=== PATIENT | male | born 2000 | race Caucasian/White ===

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

== ENCOUNTER 2021-02-07 03:29 | Emergency (ER) | payer SELFPAY ==
[2021-02-07] MEDS ORDERED: Ketorolac 15 MG/ML SDV IVPUSH ONE (03:41)
[2021-02-07 03:57] LABS: BLOOD UREA NITROGEN,BUN 15 mg/dL (7.0-18.0); CARBON DIOXIDE,CO2 30.8 mmol/L (21.0-32.0); CHLORIDE,CL 104 mmol/L (98-107); GLUCOSE RANDOM 96 mg/dL (74-106); POTASSIUM,K 3.3 mmol/L (3.5-5.1); SODIUM,NA 144 mmol/L (136-148)
--- NOTE | 2021-02-07 04:52 | CR ---
INDICATION: Left-sided chest pain TECHNIQUE: AP view of the chest COMPARISON: None FINDINGS: The lungs are clear. There is no sizable pleural effusion or pneumothorax. The cardiomediastinal silhouette is normal. The visualized osseous structures are unremarkable. IMPRESSION: No acute intrathoracic process. Dictated by Charlotte Sharma MD @ Feb 07 2021 4:51AM Signed by Dr. Charlotte Sharma @ Feb 07 2021 4:52AM
[2021-02-07] MEDS ORDERED: Azithromycin 250 MG Tab PO STA (05:03)
[2021-02-07 05:07] LABS: CORONAVIRUS COVID-19 NAA NEGATIVE (NEGATIVE); INFLUENZA A NAA NEGATIVE (NEGATIVE); INFLUENZA B NAA NEGATIVE (NEGATIVE)
[2021-02-07 05:19] VITALS: BP 112/70; PULSE 70
--- NOTE | 2021-02-07 05:22 | EDM.PDOC ---
ED HPI GENERAL MEDICAL PROBLEM - General Chief Complaint: Chest Pain Stated Complaint: CHEST PAIN Time Seen by Provider: 02/07/21 03:35 - History of Present Illness INITIAL COMMENTS - FREE TEXT/NARRATIVE: CHIEF COMPLAINT(S): Chest pain HISTORY OF PRESENT ILLNESS: This is a 20-year-old man with a past medical history of bicuspid aortic valve who comes to the emergency department with a chief complaint of chest pain. The patient states that for the past 3 weeks he is experiencing a dry cough that he did have a Covid test last week which was negative. He states that starting this evening he started to have chest pain on the left side of his chest which she describes as sharp and pressure like a needle located on the lateral left side of his chest wall without any radiation. He rates his pain as 8 out of 10. He states the pain is exacerbated by coughing. He denies any relieving symptoms. He denies any diaphoresis but did have 2 episodes of vomiting. He denies any nausea. He states that he was at work when this happened. 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 He denies any recent travel, recent surgery, prior history of DVT or PE. He denies any family history of early onset CAD or sudden onset at young age. He denies any fevers or chills. The patient denies any history of asthma, COPD. REVIEW OF SYSTEMS: Constitutional: Denies fever, chills. Eyes: Denies eye pain Ears, Nose, Mouth, & Throat: Denies earache Cardiovascular: Positive for left-sided chest pain Respiratory: Positive for cough. Denies shortness of breath Gastrointestinal: Denies Nausea, vomiting, diarrhea, hematochezia. Genitourinary: Denies hematuria Skin:Denies a rash MSK: Denies joint pain Neurological: Denies blurred vision Psychiatric: Denies depression PAST MEDICAL HISTORY: As per history of present illness and as reviewed below otherwise noncontributory. SURGICAL HISTORY: As per history of present illness and as reviewed below otherwise noncontributory. SOCIAL HISTORY: As per history of present illness and as reviewed below otherwise noncontributory. FAMILY HISTORY: As per history of present illness and as reviewed below otherwise noncontributory. EXAMINATION OF ORGAN SYSTEMS/BODY AREAS: Constitutional: Blood pressure is 130/93, heart rate 80, respiratory rate 18 with an oxygen saturation 98% on room air. Temperature 36.8 General: Young man who does not appear to be any acute distress who is coughing intermittently. Psychiatric: Appropriate mood and affect. Eyes: No scleral icterus or conjunctival erythema ENMT: Moist mucous membranes. No pharyngeal erythema Cardiovascular: Regular, rate, and rhythm. No gallops, murmurs, or rubs. Bilateral upper extremity pulses symmetric and intact. No peripheral edema. No JVD. Respiratory: Patient is speaking in full sentences. Cough is nonproductive. There is left lower lung crackles on auscultation. Right lung fierro are clear. Gastrointestinal: Soft, non-tender, non-distended. Normoactive bowel sounds Genitourinary: No suprapubic tenderness Musculoskeletal: Normal range of motion. Skin: No lesions or abrasions. Neurological: Alert, GCS 15 MEDICAL DECISION MAKING AND COURSE IN THE ED WITH INTERPRETATION/REVIEW OF LIV GNOSTIC STUDIES: This is a 20-year-old man with a past medical history of bicuspid aortic valve who comes to the emergency department with 3 weeks of cough with left-sided chest wall pain that started this evening which is exacerbated by his cough. At this time differential includes pneumothorax, pneumonia, costochondritis. The patient is low risk for ACS therefore I do not believe a troponin is indicated at this time. EKG was obtained which did not reveal any acute signs of ischemia. Will obtain CBC, BMP, Covid and influenza swabs. We will provide him with Toradol for pain relief. Time: 0334 Twelve-lead EKG interpreted by myself. Normal sinus rhythm at a rate of 77beats per minute. Normal axis. ID interval is 159 ms. QRS duration is [address] segments are normal without elevations or depressions. No T wave inversions no Q waves present. Hypertrophy not noted. No changes demonstrated from prior EKG dated 10/07/2019. Interpretation: Sinus rhythm On review of the patient's chart the patient did have a echocardiogram done in November of this year. Echocardiogram was normal. Laboratory: CBC reveals a mild leukocytosis of 12.79 without any left shift. BMP reveals mild hypokalemia at 3.3 otherwise unremarkable. Covid and influenza are negative. The radiological images were viewed by myself along with reading the report from the radiologist. Chest x-ray does not reveal any acute intrathoracic process. On reevaluation the patient's pain had significantly improved. He states that the pain is still only when he is coughing. I did discuss them at this time that given the crackles on lung exam the mild leukocytosis and the continued cough he does have clinically pneumonia even though its not evident on chest x- ray. I discussed that I would be providing him with azithromycin here and to complete a 4-day course outpatient. I discussed with him that he should use Tylenol and Motrin for pain relief and use Voltaren cream to the affected area. I encourage incentive spirometer use. He is to return for any new or worsening symptoms. He was amenable to discharge at this time and had no further questions DISPOSITION: The patient was discharged home in stable condition. The patient will follow up with primary care physician within 2 to 3 days CONDITION: Fair PROCEDURES: None FINAL IMPRESSION(S)/DIAGNOSES: 1. Acute commune acquired pneumonia 2. Acute left-sided chest pain likely costochondritis Stevan Little M.D. chest Pain Score (Numeric/FACES): 5 - Related Data Allergies Allergy/AdvReac Type Severity Reaction Status Date / Time No Known Allergies Allergy Verified 02/07/21 03:47 Home Meds: Home Meds Azithromycin [Zithromax] 250 mg PO DAILY #4 tablet 02/07/21 [Rx] Past Medical History HEENT History: Reports: Other (See Below) Cardiovascular History: Reports: Other (See Below) Other Cardiovascular History: Congenital Aortic Insufficiency, bicuspid aortic valve,normal cardiac function on exam, no physical limitations, no need for prophylactic antibiotics Respiratory History: Reports: None Other Respiratory History: some on exertion Gastrointestinal History: Reports: None Genitourinary History: Reports: None Musculoskeletal History: Reports: None Neurological History: Reports: Concussion Psychiatric History: Reports: None Endocrine/Metabolic History: Reports: None Hematologic History: Reports: None Immunologic History: Reports: None Oncologic (Cancer) History: Reports: None Dermatologic History: Reports: None - Infectious Disease History Infectious Disease History: Reports: None - Past Surgical History Head Surgeries/Procedures: Reports: None HEENT Surgical History: Reports: Tonsillectomy Cardiovascular Surgical History: Reports: None Respiratory Surgical History: Reports: None GI Surgical History: Reports: None Male Surgical History: Reports: None Endocrine Surgical History: Reports: None Neurological Surgical History: Reports: None Musculoskeletal Surgical History: Reports: None Oncologic Surgical History: Reports: None Dermatological Surgical History: Reports: None Social & Family History - Family History Family Medical History: No Pertinent Family History - Caffeine Use Caffeine Use: Reports: Energy Drinks Other Caffeine Use: avg 1 per day - Recreational Drug Use Recreational Drug Use: No ED ROS GENERAL - Review of Systems Review Of Systems: See Below ED EXAM, GENERAL - Physical Exam Exam: See Below Course - Vital Signs Last Recorded V/S: Last Vital Signs Temp 36.4 C 02/07/21 05:19 Pulse 70 02/07/21 05:19 Resp 18 02/07/21 05:19 BP 112/70 02/07/21 05:19 Pulse Ox 98 02/07/21 05:19 - Orders/Labs/Meds Orders: Active Orders 24 hr Category Date Time Status EKG Documentation Completion [RC] STAT Care 02/07/21 03:36 Active Labs: Laboratory Tests 02/07/21 02/07/21 02/07/21 Range/Units 03:36 03:36 04:25 WBC 12.79 H (4.0-11.0) K/uL RBC 5.56 (4.50-5.90) M/uL Hgb 16.3 (13.0-17.0) g/dL Hct 47.0 (38.0-50.0) % MCV 84.5 (80.0-98.0) fL MCH 29.3 (27.0-32.0) pg MCHC 34.7 (31.0-37.0) g/dL RDW Std Deviation 39.5 (28.0-62.0) fl RDW Coeff of Germán 13 (11.0-15.0) % Plt Count 225 (150-400) K/uL MPV 9.70 (7.40-12.00) fL Neut % (Auto) 62.4 (48.0-80.0) % Lymph % (Auto) 29.6 (16.0-40.0) % Bailey % (Auto) 7.0 (0.0-15.0) % Eos % (Auto) 0.8 (0.0-7.0) % Baso % (Auto) 0.2 (0.0-1.5) % Neut # (Auto) 8.0 H (1.4-5.7) K/uL Lymph # (Auto) 3.8 H (0.6-2.4) K/uL Bailey # (Auto) 0.9 H (0.0-0.8) K/uL Eos # (Auto) 0.1 (0.0-0.7) K/uL Baso # (Auto) 0.0 (0.0-0.1) K/uL Nucleated RBC % 0.0 /100WBC Nucleated RBCs # 0 K/uL Sodium 144 (136-148) mmol/L Potassium 3.3 L (3.5-5.1) mmol/L Chloride 104 (98-107) mmol/L Carbon Dioxide 30.8 (21.0-32.0) mmol/L BUN 15 (7.0-18.0) mg/dL Creatinine 1.0 (0.8-1.3) mg/dL Est Cr Clr Drug Dosing 108.24 mL/min Estimated GFR (MDRD) > 60.0 ml/min Glucose 96 (74-106) mg/dL Calcium 9.3 (8.5-10.1) mg/dL Influenza Type A RNA NEGATIVE (NEGATIVE) Influenza Type B RNA NEGATIVE (NEGATIVE) SARS-CoV-2 RNA (CAIN) NEGATIVE (NEGATIVE) Meds: Medications Discontinued Medications Generic Name Dose Route Start Last Admin Trade Name Freq PRN Reason Stop Dose Admin Azithromycin 500 mg 02/07/21 05:03 02/07/21 05:15 Azithromycin 250 Mg Tab PO 02/07/21 05:04 500 mg ONETIME STA Administration Ketorolac Tromethamine 15 mg 02/07/21 03:41 02/07/21 03:51 Ketorolac 15 Mg/Ml Sdv IVPUSH 02/07/21 03:42 15 mg ONETIME ONE Administration Departure - Departure Time of Disposition: 05:20 Disposition: Home, Self-Care 01 Condition: Fair Clinical Impression: Pneumonia, Costochondral chest pain - Discharge Information *PRESCRIPTION DRUG MONITORING PROGRAM REVIEWED*: No *COPY OF PRESCRIPTION DRUG MONITORING REPORT IN PATIENT CLAUDIO: No Prescriptions: Azithromycin [Zithromax] 250 mg PO DAILY #4 tablet Instructions: Chest Wall Pain, [id number], Community-Acquired Pneumonia, Adult, [id number] Referrals: PCP,None [Primary Care Provider] - Forms: ED Department Discharge Additional Instructions: You were evaluated today on an emergent basis. At this time I do believe your pain is likely secondary to costochondritis which is inflammation of the rib from your coughing. In addition I do believe you have pneumonia. Please complete the antibiotic course. I did send the antibiotics to [facility]. For the rib pain I would like you to use an incentive spirometer throughout the day. In addition you may use Tylenol and Motrin for pain and fever relief. If you have any worsening pain, shortness of breath, or fever please return to the emergency department Please use: Tylenol 500-1000mg every 6 hours (DO NOT TAKE MORE THAN 4000mg in 1 day) Ibuprofen 400mg every 6 hours (Take with food as it can cause ulcers, GI upset) Example schedule: 8:00 AM (Tylenol 500-1000mg) 11:00 AM (Ibuprofen 400mg) 2:00 PM (Tylenol 500-1000mg) 5:00 PM (Ibuprofen 400mg) In addition to Tylenol and Motrin you may use over the counter creams such as Voltaren Cream or Lidocaine Cream (Lidoderm) as needed 4 times a day for symptomatic relief. [facility] [address] [place] [address] [place] [address] The patient is informed of any results of their evaluation and diagnostic workup and all questions are answered. They are given discharge instructions and return precautions. The patient is stable for discharge. The patient states they understand and agree with the plan and that they will return if their symptoms get worse or if they have any new concerns. The following information is given to patients seen in the emergency department who are being discharged to home. This information is to outline your options for follow-up care. We provide all patients seen in our emergency department with a follow-up referral. The need for follow-up, as well as the timing and circumstances, are variable depending upon the specifics of your emergency department visit. If you don't have a primary care physician on staff, we will provide you with a referral. We always advise you to contact your personal physician following an emergency department visit to inform them of the circumstance of the visit and for follow-up with them and/or the need for any referrals to a consulting specialist. The emergency department will also refer you to a specialist when appropriate. This referral assures that you have the opportunity for follow-up care with a specialist. All of these measure are taken in an effort to provide you with optimal care, which includes your follow-up. Under all circumstances we always encourage you to contact your private physician who remains a resource for coordinating your care. When calling for follow-up care, please make the office aware that this follow-up is from your recent emergency room visit. If for any reason you are refused follow-up, please contact the [facility] Emergency Department at and asked to speak to the emergency department charge nurse. Sepsis Event Note (ED) - Evaluation Sepsis Screening Result: No Definite Risk - Focused Exam Vital Signs: Vital Signs Temp Pulse Resp BP Pulse Ox 02/07/21 05:19 36.4 C 70 18 112/70 98 02/07/21 04:00 77 18 118/81 97 02/07/21 03:35 36.8 C 80 18 130/93 H 98 - My Orders Last 24 Hours: My Active Orders 02/07/21 03:36 EKG Documentation Completion [RC] STAT - Assessment/Plan Last 24 Hours: My Active Orders 02/07/21 03:36 EKG Documentation Completion [RC] STAT
== END 2021-02-07 04:35 | disposition home or self-care (01) ==
LOC: MW.ED 03:29
DX: J18.9 Pneumonia, unspecified organism (principal); R07.1 Chest pain on breathing; Z20.822 Contact with and (suspected) exposure to COVID-19
CPT/HCPCS: 0240U; 36415; 71045; 80048; 85025; 93005; 96374; 99285; A9270; J1885; 93010; 99283

== ENCOUNTER 2021-02-16 23:33 | Emergency (ER) | payer SELFPAY ==
--- NOTE | 2021-02-16 23:39 | EDM.PDOC ---
ED HPI GENERAL MEDICAL PROBLEM - General Stated Complaint: CHEST PAIN, RIB PAIN, TROUBLE BREATHING Time Seen by Provider: 02/16/21 23:37 Source of Information: Reports: Patient History Limitations: Reports: No Limitations - History of Present Illness INITIAL COMMENTS - FREE TEXT/NARRATIVE: 20-year-old male with history of bicuspid aortic valve presents with reproducible left lower rib pain after violently coughing just prior to arrival. He has been coughing for about 2 weeks, this evening he was violently coughing followed by vomiting and acute onset left lateral rib pain. Pain is reproducible, pleuritic and positional. Pain is not exertional and is nonradiating. ROS: A 10-point review of systems, other than pertinent positives and negatives as stated per HPI, is otherwise negative Past medical history: No additional pertinent history Past Surgical history: No additional pertinent history Social history: No additional pertinent history Family history: No additional pertinent history PHYSICAL EXAM General: AOx4, GCS = 15, moderate distress HEENT: dry mucous membrane Neck: supple, no meningismus, no Kernig or Brudzinski Cardiac: S1S2 RRR Respiratory: CTAB, no crackles or rales, no wheezing Chest wall: 100% reproducible left lateral chest wall tenderness to palpation. No flail chest Abdomen: Soft, nontender, no rebound or guarding, nondistended, no pulsatile mass. Back: nontender Musculoskeletal: NVI distally, no deformity Neuro: No focal deficits left ribs Pain Score (Numeric/FACES): 10 - Related Data Allergies Allergy/AdvReac Type Severity Reaction Status Date / Time No Known Allergies Allergy Verified 02/16/21 23:52 Home Meds: Home Meds Azithromycin [Zithromax] 250 mg PO DAILY #4 tablet 02/07/21 [Rx] Naproxen [Naprosyn] 500 mg PO Q12HR #30 tab 02/17/21 [Rx] Past Medical History HEENT History: Reports: Other (See Below) Cardiovascular History: Reports: Other (See Below) Other Cardiovascular History: Congenital Aortic Insufficiency, bicuspid aortic valve,normal cardiac function on exam, no physical limitations, no need for prophylactic antibiotics Respiratory History: Reports: None Other Respiratory History: some on exertion Gastrointestinal History: Reports: None Genitourinary History: Reports: None Musculoskeletal History: Reports: None Neurological History: Reports: Concussion Psychiatric History: Reports: None Endocrine/Metabolic History: Reports: None Hematologic History: Reports: None Immunologic History: Reports: None Oncologic (Cancer) History: Reports: None Dermatologic History: Reports: None - Infectious Disease History Infectious Disease History: Reports: None - Past Surgical History Head Surgeries/Procedures: Reports: None HEENT Surgical History: Reports: Tonsillectomy Cardiovascular Surgical History: Reports: None Respiratory Surgical History: Reports: None GI Surgical History: Reports: None Male Surgical History: Reports: None Endocrine Surgical History: Reports: None Neurological Surgical History: Reports: None Musculoskeletal Surgical History: Reports: None Oncologic Surgical History: Reports: None Dermatological Surgical History: Reports: None Social & Family History - Family History Family Medical History: No Pertinent Family History - Caffeine Use Caffeine Use: Reports: Energy Drinks Other Caffeine Use: avg 1 per day ED ROS GENERAL - Review of Systems Review Of Systems: See Below (see dictation) ED EXAM, GENERAL - Physical Exam Exam: See Below (see dictation) #1 Interpretation EKG Interpretation Comments: Heart rate = [] bpm, normal sinus rhythm, normal QRS interval, no STEMI. EKG and rhythm strip interpreted by me at [ ] Course - Vital Signs Last Recorded V/S: Last Vital Signs Temp 98 F 02/16/21 23:45 Pulse 100 02/16/21 23:45 Resp 20 02/16/21 23:45 BP 132/92 H 02/16/21 23:45 Pulse Ox 98 02/16/21 23:45 - Orders/Labs/Meds Orders: Active Orders 24 hr Category Date Time Status Cardiac Monitoring [RC] . DIRECTED Care 02/16/21 23:37 Active Pulse Oximetry Continuous Monitoring [OM.PC] CONTINUOUS Oth 02/16/21 23:45 Ordered Meds: Medications Discontinued Medications Generic Name Dose Route Start Last Admin Trade Name Freq PRN Reason Stop Dose Admin Ketorolac Tromethamine 30 mg 02/16/21 23:47 02/16/21 23:55 Ketorolac 30 Mg/Ml Sdv IM 02/16/21 23:48 Not Given ONETIME ONE Ketorolac Tromethamine 30 mg 02/16/21 23:54 02/16/21 23:56 Ketorolac 30 Mg/Ml Sdv IVPUSH 02/16/21 23:55 30 mg ONETIME ONE Administration - Re-Assessments/Exams Free Text/Narrative Re-Assessment/Exam: 02/16/21 23:52 Ordered IV Toradol 02/17/21 00:58 After IV toradol in the ER, his pain improved and is currently stable for discharge. I performed a repeat exam and did not appreciate new abnormal findings. Patient exhibits normal vital signs and has a normal gait on road test. I advised the patient to return to the ER for reevaluation if symptoms worsened, including fever, worsening pain, or any other worrisome symptoms. I instructed the patient to follow up with their PCP within 2-3 days. MEDICAL DECISION MAKING: I reviewed the patients past medical records, lab and radiographic findings. I discussed the case with the patient. My differential diagnosis included: Chest wall strain, pneumothorax, pneumomediastinum, ACS, bronchitis. Pain is completely reproducible with palpation onto the left lower rib, this occurred after vomiting coughing, history is consistent with strain to the chest wall. X-ray did not demonstrate rib fractures or pneumothorax. There was no wide mediastinum, there is no subcutaneous emphysema, I do not suspect aortic dissection or pneumomediastinum. Chest x-ray did not demonstrate pneumonia. His EKG was unremarkable, I do not suspect ACS. Patient is PERC negative, I do not suspect pulmonary embolism. Departure - Departure Time of Disposition: 00:55 Disposition: Home, Self-Care 01 Condition: Good Clinical Impression: Costochondral chest pain - Discharge Information *PRESCRIPTION DRUG MONITORING PROGRAM REVIEWED*: Not Applicable *COPY OF PRESCRIPTION DRUG MONITORING REPORT IN PATIENT CLAUDIO: Not Applicable Prescriptions: Naproxen [Naprosyn] 500 mg PO Q12HR #30 tab Instructions: Chest Wall Pain, [id number] Forms: ED Department Discharge Additional Instructions: The need for follow-up, as well as the timing and circumstances, are variable depending upon the specifics of your emergency department visit. If you don't have a primary care physician on staff, we will provide you with a referral. We always advise you to contact your personal physician following an emergency department visit to inform them of the circumstance of the visit and for follow-up with them and/or the need for any referrals to a consulting specialist. The emergency department will also refer you to a specialist when appropriate. This referral assures that you have the opportunity for follow-up care with a specialist. All of these measure are taken in an effort to provide you with optimal care, which includes your follow-up. Under all circumstances we always encourage you to contact your private physician who remains a resource for coordinating your care. When calling for follow-up care, please make the office aware that this follow-up is from your recent emergency room visit. If for any reason you are refused follow-up, please contact the [facility] Emergency Department at and asked to speak to the emergency department charge nurse. If you do not have a primary care doctor, please follow up with the clinics below within 3-[address] [facility] [address] [place] [id number] [id number] Sepsis Event Note (ED) - Focused Exam Vital Signs: Vital Signs Temp Pulse Resp BP Pulse Ox 02/16/21 23:45 98 F 100 20 132/92 H 98 - My Orders Last 24 Hours: My Active Orders 02/16/21 23:37 Cardiac Monitoring [RC] . DIRECTED 02/16/21 23:45 Pulse Oximetry Continuous Monitoring [OM.PC] CONTINUOUS - Assessment/Plan Last 24 Hours: My Active Orders 02/16/21 23:37 Cardiac Monitoring [RC] . DIRECTED 02/16/21 23:45 Pulse Oximetry Continuous Monitoring [OM.PC] CONTINUOUS
[2021-02-16] MEDS ORDERED: Ketorolac 30 MG/ML SDV IM ONE (23:47)
[2021-02-16] MEDS ORDERED: Ketorolac 30 MG/ML SDV IVPUSH ONE (23:54)
--- NOTE | 2021-02-17 00:49 | CR ---
INDICATION: Left rib pain status post trauma TECHNIQUE: Upright PA view of the chest and 4 views of the left ribs COMPARISON: None FINDINGS: No displaced rib fracture is demonstrated. There is no pleural effusion or pneumothorax. The lungs are clear. The cardiomediastinal silhouette is normal. IMPRESSION: No acute abnormality. Dictated by Charlotte Sharma MD @ Feb 17 2021 12:47AM Signed by Dr. Charlotte Sharma @ Feb 17 2021 12:47AM
[2021-02-17 01:14] VITALS: BP 102/53; PULSE 68
== END 2021-02-17 01:10 | disposition home or self-care (01) ==
LOC: MW.ED 23:33
DX: R07.1 Chest pain on breathing (principal)
CPT/HCPCS: 71101; 93005; 96374; 99283; J1885; 93010

== ENCOUNTER 2021-04-22 00:09 | Emergency (ER) | payer OTHER ==
[2021-04-22] MEDS ORDERED: Ondansetron 4 MG/2 ML SDV IVPUSH ONE (00:40)
[2021-04-22] MEDS ORDERED: Sodium Chloride 0.9% 10 ML Syringe FLUSH PRN (00:40)
[2021-04-22] MEDS ORDERED: Sodium Chloride 0.9% 2.5 ML Syringe FLUSH PRN (00:40)
[2021-04-22] MEDS ORDERED: Lactated Ringers 1,000 ML IV ONE (00:40)
--- NOTE | 2021-04-22 00:44 | EDM.PDOC ---
ED HPI GENERAL MEDICAL PROBLEM - General Chief Complaint: Gastrointestinal Problem Stated Complaint: HEAT EXHAUSTION SYMPTOMS Time Seen by Provider: 04/22/21 00:23 - History of Present Illness INITIAL COMMENTS - FREE TEXT/NARRATIVE: 20-year-old male with known bicuspid valve but no other known medical problems presents with improved near syncope versus syncope with nausea and nonbloody nonbilious emesis. Patient was working outside. It is moderately warm. He initially felt very good. He had had 3 or 4 bottles of water. He grabbed an ice cold bottle of water chocolate and then try to go back to work. He had nausea and emesis followed by lightheadedness. He tried to shake it off and go back to work but he felt gradually worse and worse with worsening lightheadedness and worsening nausea with near syncope. He had abdominal pain during the active emesis but not at any other time. Patient felt well earlier in the day no fevers. No prior history of surgery on tonsillectomy. Patient continued to feel worse and worse and so was here by work for evaluation. Patient reports he continues to have some nausea but the majority of his lightheadedness has resolved. He denies any chest pain palpitations or shortness of breath surrounding this incident. He denies any prior history of similar episodes. head Pain Score (Numeric/FACES): 4 - Related Data Allergies Allergy/AdvReac Type Severity Reaction Status Date / Time No Known Allergies Allergy Verified 04/22/21 00:31 Home Meds: Home Meds . [No Known Home Meds] 04/22/21 [History] Past Medical History HEENT History: Reports: Other (See Below) Cardiovascular History: Reports: Other (See Below) Other Cardiovascular History: Congenital Aortic Insufficiency, bicuspid aortic valve,normal cardiac function on exam, no physical limitations, no need for prophylactic antibiotics Respiratory History: Reports: None Other Respiratory History: some on exertion Gastrointestinal History: Reports: None Genitourinary History: Reports: None Musculoskeletal History: Reports: None Neurological History: Reports: Concussion Psychiatric History: Reports: None Endocrine/Metabolic History: Reports: None Hematologic History: Reports: None Immunologic History: Reports: None Oncologic (Cancer) History: Reports: None Dermatologic History: Reports: None - Infectious Disease History Infectious Disease History: Reports: None - Past Surgical History Head Surgeries/Procedures: Reports: None HEENT Surgical History: Reports: Tonsillectomy Cardiovascular Surgical History: Reports: None Respiratory Surgical History: Reports: None GI Surgical History: Reports: None Male Surgical History: Reports: None Endocrine Surgical History: Reports: None Neurological Surgical History: Reports: None Musculoskeletal Surgical History: Reports: None Oncologic Surgical History: Reports: None Dermatological Surgical History: Reports: None Social & Family History - Family History Family Medical History: No Pertinent Family History - Tobacco Use Tobacco Use Status *Q: Never Tobacco User - Caffeine Use Caffeine Use: Reports: None Other Caffeine Use: avg 1 per day - Recreational Drug Use Recreational Drug Use: No ED ROS GENERAL - Review of Systems Review Of Systems: See Below Free Text/Narrative/Comment: General: No fever. Eyes: Tunnel vision during the episode no active visual issues ENT: No sore throat. Neck: No neck stiffness. Respiratory: No shortness of breath. Cardiac: Per HPI Gastrointestinal: Per HPI Musculoskeletal: No myalgias/arthralgias. Neurologic: No headache. ED EXAM, GENERAL - Physical Exam Exam: See Below Free Text/Narrative:: General Appearance: No acute distress, appears comfortable Skin: No rash HEENT: Normocephalic/atraumatic, sclera anicteric, mucous membranes dry Neck: Normal range of motion Chest and Lungs: Bilateral breath sounds, clear to auscultation Cardiovascular: Regular rate and rhythm, no murmur Abdomen: Soft, non-tender Back: Normal Musculoskeletal: No edema or tenderness Neurologic: Awake, alert, no obvious deficits, moving all extremities Psychiatric: Appropriate, cooperative #1 Interpretation EKG Date: 04/22/21 Time: 00:57 EKG Interpretation Comments: Normal sinus rhythm rate of 79 normal axis and intervals no acute ischemia normal EKG Course - Vital Signs Last Recorded V/S: Last Vital Signs Temp 97.4 F 04/22/21 00:27 Pulse 80 04/22/21 00:27 Resp 18 04/22/21 00:27 BP 118/88 04/22/21 00:27 Pulse Ox 98 04/22/21 00:27 - Orders/Labs/Meds Orders: Active Orders 24 hr Category Date Time Status EKG Documentation Completion [RC] STAT Care 04/22/21 00:40 Active Lactated Ringers [Ringers, Lactated] 1,000 ml Med 04/22/21 00:40 Active IV .BOLUS Sodium Chloride 0.9% [Saline Flush] Med 04/22/21 00:40 Active 10 ml FLUSH ASDIRECTED PRN Sodium Chloride 0.9% [Saline Flush] Med 04/22/21 00:40 Active 2.5 ml FLUSH ASDIRECTED PRN Saline Lock Insert [OM.PC] Stat Oth 04/22/21 00:40 Ordered Medication Orders Lactated Ringer's (Ringers, Lactated) 1,000 mls @ 999 mls/hr IV .BOLUS ONE Stop: 04/22/21 01:40 Last Admin: 04/22/21 00:58 Dose: 999 mls/hr Documented by: LASHA Sodium Chloride (Sodium Chloride 0.9% 10 Ml Syringe) 10 ml FLUSH ASDIRECTED PRN PRN Reason: Keep Vein Open Sodium Chloride (Sodium Chloride 0.9% 2.5 Ml Syringe) 2.5 ml FLUSH ASDIRECTED PRN PRN Reason: Keep Vein Open Labs: Laboratory Tests 04/22/21 04/22/21 Range/Units 00:53 00:53 WBC 11.50 H (4.0-11.0) K/uL RBC 5.50 (4.50-5.90) M/uL Hgb 16.0 (13.0-17.0) g/dL Hct 46.8 (38.0-50.0) % MCV 85.1 (80.0-98.0) fL MCH 29.1 (27.0-32.0) pg MCHC 34.2 (31.0-37.0) g/dL RDW Std Deviation 41.8 (28.0-62.0) fl RDW Coeff of Germán 13 (11.0-15.0) % Plt Count 252 (150-400) K/uL MPV 9.70 (7.40-12.00) fL Neut % (Auto) 73.6 (48.0-80.0) % Lymph % (Auto) 19.7 (16.0-40.0) % [place] % (Auto) 6.3 (0.0-15.0) % Eos % (Auto) 0.3 (0.0-7.0) % Baso % (Auto) 0.1 (0.0-1.5) % Neut # (Auto) 8.5 H (1.4-5.7) K/uL Lymph # (Auto) 2.3 (0.6-2.4) K/uL [place] # (Auto) 0.7 (0.0-0.8) K/uL Eos # (Auto) 0.0 (0.0-0.7) K/uL Baso # (Auto) 0.0 (0.0-0.1) K/uL Nucleated RBC % 0.0 /100WBC Nucleated RBCs # 0 K/uL Sodium 139 (136-148) mmol/L Potassium 4.0 (3.5-5.1) mmol/L Chloride 101 (98-107) mmol/L Carbon Dioxide 26.9 (21.0-32.0) mmol/L BUN 15 (7.0-18.0) mg/dL Creatinine 1.0 (0.8-1.3) mg/dL Est Cr Clr Drug Dosing 111.08 mL/min Estimated GFR (MDRD) > 60.0 ml/min Glucose 101 (74-106) mg/dL Calcium 9.4 (8.5-10.1) mg/dL Magnesium 2.2 (1.8-2.4) mg/dL Total Bilirubin 0.5 (0.2-1.0) mg/dL AST 21 (15-37) IU/L ALT 24 (14-63) IU/L Alkaline Phosphatase 231 H (46-116) U/L Troponin I < 0.050 (0.000-0.056) ng/mL Total Protein 8.4 H (6.4-8.2) g/dL Albumin 4.3 (3.4-5.0) g/dL Globulin 4.1 H (2.6-4.0) g/dL Albumin/Globulin Ratio 1.1 (0.9-1.6) Lipase 44 L (73-393) U/L Meds: Medications Generic Name Dose Route Start Last Admin Trade Name Freq PRN Reason Stop Dose Admin Lactated Ringer's 1,000 mls @ 999 mls/hr 04/22/21 00:40 04/22/21 00:58 Ringers, Lactated IV 04/22/21 01:40 999 mls/hr .BOLUS ONE Administration Sodium Chloride 10 ml 04/22/21 00:40 Sodium Chloride 0.9% 10 Ml Syringe FLUSH ASDIRECTED PRN Keep Vein Open Sodium Chloride 2.5 ml 04/22/21 00:40 Sodium Chloride 0.9% 2.5 Ml Syringe FLUSH ASDIRECTED PRN Keep Vein Open Discontinued Medications Generic Name Dose Route Start Last Admin Trade Name Thiago PRN Reason Stop Dose Admin Ondansetron HCl 4 mg 04/22/21 00:40 04/22/21 00:58 Ondansetron 4 Mg/2 Ml Sdv IVPUSH 04/22/21 00:41 4 mg ONETIME ONE Administration Departure - Departure Time of Disposition: :31 Disposition: Home, Self-Care 01 Condition: Good Clinical Impression: Vasovagal near syncope - Discharge Information *PRESCRIPTION DRUG MONITORING PROGRAM REVIEWED*: Not Applicable *COPY OF PRESCRIPTION DRUG MONITORING REPORT IN PATIENT CLAUDIO: Not Applicable Instructions: Near-Syncope Referrals: Eyal Galindo MD [Primary Care Provider] - Forms: ED Department Discharge Additional Instructions: Your EKG showed normal heart function your blood work was normal. Your electrolytes were normal. The most likely cause of your symptoms was checking the ice cold water leading to stimulation of your vagus nerve and something called vasovagal near syncope. At your young age you do not need to be admitted for this problem. However I encourage you to follow-up with your primary care doctor. If your symptoms recur or worsen or you have any new symptoms that concern you please call your doctor or return to the ER. The following information is given to patients seen in the emergency department who are being discharged to home. This information is to outline your options for follow-up care. We provide all patients seen in our emergency department with a follow-up referral. The need for follow-up, as well as the timing and circumstances, are variable depending upon the specifics of your emergency department visit. If you don't have a primary care physician on staff, we will provide you with a referral. We always advise you to contact your personal physician following an emergency department visit to inform them of the circumstance of the visit and for follow-up with them and/or the need for any referrals to a consulting specialist. The emergency department will also refer you to a specialist when appropriate. This referral assures that you have the opportunity for follow-up care with a specialist. All of these measure are taken in an effort to provide you with optimal care, which includes your follow-up. Under all circumstances we always encourage you to contact your private physician who remains a resource for coordinating your care. When calling for follow-up care, please make the office aware that this follow-up is from your recent emergency room visit. If for any reason you are refused follow-up, please contact the [facility] Emergency Department at and asked to speak to the emergency department charge nurse. Sepsis Event Note (ED) - Evaluation Sepsis Screening Result: No Definite Risk - Focused Exam Vital Signs: Vital Signs Temp Pulse Resp BP Pulse Ox 04/22/21 00:27 97.4 F 80 18 118/88 98 - My Orders Last 24 Hours: My Active Orders 04/22/21 00:40 EKG Documentation Completion [RC] STAT Lactated Ringers [Ringers, Lactated] 1,000 ml IV .BOLUS Sodium Chloride 0.9% [Saline Flush] 10 ml FLUSH ASDIRECTED PRN Sodium Chloride 0.9% [Saline Flush] 2.5 ml FLUSH ASDIRECTED PRN Saline Lock Insert [OM.PC] Stat - Assessment/Plan Last 24 Hours: My Active Orders 04/22/21 00:40 EKG Documentation Completion [RC] STAT Lactated Ringers [Ringers, Lactated] 1,000 ml IV .BOLUS Sodium Chloride 0.9% [Saline Flush] 10 ml FLUSH ASDIRECTED PRN Sodium Chloride 0.9% [Saline Flush] 2.5 ml FLUSH ASDIRECTED PRN Saline Lock Insert [OM.PC] Stat Assessment:: 20-year-old male presenting with near syncope versus syncope without collapse. EKG is pending. Heat illness is a consideration. Vasovagal episode related to the ice cold water is a consideration on balance felt more likely. Arrhythmia is considered he is at very low risk for this but again EKG is pending as well as magnesium CBC and CMP. Patient has no hypoxia he has no tachycardia he has no chest pain or shortness of breath PE felt very unlikely. Patient is exceptionally low risk for ACS. Single troponin ordered as part of an assessment for malignant arrhythmia but I do not have a significant clinical concern for ACS in this patient. Given the emesis and the abdominal pain could consider biliary pathology or pancreatitis but these are also felt unlikely. Relevant labs pending. Zofran and IV fluids for symptoms and will reassess. 0131: Patient's labs are normal he feels better after the fluid and Zofran. Patient tolerates p.o. comfortable going home with follow-up he has a primary care provider with whom he will follow up.
[2021-04-22 01:26] LABS: BLOOD UREA NITROGEN,BUN 15 mg/dL (7.0-18.0); CARBON DIOXIDE,CO2 26.9 mmol/L (21.0-32.0); CHLORIDE,CL 101 mmol/L (98-107); GLUCOSE RANDOM 101 mg/dL (74-106); LIPASE 44 U/L (73-393); SODIUM,NA 139 mmol/L (136-148)
[2021-04-22 01:38] VITALS: BP 108/70; PULSE 75
== END 2021-04-22 01:41 | disposition home or self-care (01) ==
LOC: MW.ED 00:09
DX: R55 Syncope and collapse (principal)
CPT/HCPCS: 36415; 80053; 83690; 83735; 84484; 85025; 93005; 96374; 99284; J2405; J7120; 93010; 99283

== ENCOUNTER 2023-10-22 00:57 | Emergency (ER) | payer BC ==
[2023-10-22 02:04] LABS: BASOPHILS ABSOLUTE AUTO 0.04 K/uL (0.00-0.20); BASOPHILS PERCENT AUTO 0.4 % (0.0-1.0); EOSINOPHILS ABSOLUTE AUTO 0.17 K/uL (0.00-0.45); EOSINOPHILS PERCENT AUTO 1.9 % (0.0-6.0); HEMATOCRIT 45.6 % (42.0-52.0); HEMOGLOBIN 15.8 g/dL (14.0-18.0); IMMATURE GRAN ABSOLUTE AUTO 0.02 K/uL (0.00-0.05); IMMATURE GRAN PERCENT AUTO 0.2 % (0.0-0.4); LYMPHOCYTES ABSOLUTE AUTO 3.12 K/uL (1.00-4.80); LYMPHOCYTES PERCENT AUTO 34.6 % (24.0-44.0); MEAN CORPUSCULAR HEMOGLOBIN 28.7 pg (28.0-32.0); MEAN CORPUSCULAR HGB CONC 34.6 g/dL (32.0-36.0); MEAN CORPUSCULAR VOLUME 82.9 fL (83.0-99.0); MEAN PLATELET VOLUME 9.1 fL (9.4-12.4); MONOCYTES ABSOLUTE AUTO 0.66 K/uL (0.00-0.80); MONOCYTES PERCENT AUTO 7.3 % (0.0-8.0); NEUTROPHILS PERCENT AUTO 55.6 % (41.0-71.0); PLATELET COUNT,PLT 252 K/uL (150-400); WHITE BLOOD CELL COUNT,WBC 9.01 K/uL (3.9-11.3)
[2023-10-22] MEDS ORDERED: Sodium Chloride 0.9% 1,000 ML IV ONE (02:04)
[2023-10-22 02:14] LABS: A/G RATIO 1.1 (0.9-1.6); BILIRUBIN TOTAL 0.3 mg/dL (0.2-1.0); CALCIUM 9.2 mg/dL (8.5-10.1); CARBON DIOXIDE,CO2 27.1 mmol/L (21.0-32.0); CREATININE 1.1 mg/dL (0.8-1.3); EST CRCL DRUG DOSING (CG) 98.48 mL/min; POTASSIUM,K 3.4 mmol/L (3.5-5.1); PROTEIN TOTAL,TP 7.5 g/dL (6.4-8.2)
[2023-10-22 02:55] LABS: CORONAVIRUS COVID-19 NAA NEGATIVE (NEGATIVE); INFLUENZA A NAA NEGATIVE (NEGATIVE); INFLUENZA B NAA NEGATIVE (NEGATIVE)
[2023-10-22 03:19] LABS: APPEARANCE,URINE CLEAR; BILIRUBIN,URINE NEGATIVE (NEGATIVE); COLOR,URINE YELLOW; GLUCOSE,URINE NEGATIVE (NEGATIVE); KETONES,URINE 15 mg/dL (NEGATIVE); LEUKOCYTE ESTERASE,URINE NEGATIVE (NEGATIVE); NITRITE,URINE NEGATIVE (NEGATIVE); OCCULT BLOOD,URINE NEGATIVE (NEGATIVE); PROTEIN,URINE NEGATIVE (NEGATIVE); UROBILINOGEN,URINE 0.2 EU/dL (<2.0)
[2023-10-22 03:26] LABS: BACTERIA,URINE FEW (NEGATIVE); EPITHELIAL CELLS,URINE RARE (NONE-FEW); RBC,URINE 0-1 (0-2/HPF); WBC,URINE 0-2 (0-5/HPF)
[2023-10-22 04:26] VITALS: BP 125/64; PULSE 81
== END 2023-10-22 04:25 | disposition home or self-care (01) ==
LOC: MW.ED 00:57
DX: R11.2 Nausea with vomiting, unspecified (principal); B34.9 Viral infection, unspecified; R05.9 Cough, unspecified; R10.9 Unspecified abdominal pain; Z20.822 Contact with and (suspected) exposure to COVID-19; Z79.899 Other long term (current) drug therapy
CPT/HCPCS: 0240U; 36415; 71046; 80053; 81001; 83690; 85025; 86308; 87651; 93005; 96360; 99284; J7030; 99283